=== PATIENT | female | born 1985 | race Caucasian/White ===

== ENCOUNTER 2020-12-28 23:50 | Emergency (ER) | payer MEDICAID ==
[~2020-12-28] VITALS: Ht 167.6 cm; Wt 59.0 kg
[~2020-12-28 23:50] MED LIST: xanax PO
[2020-12-29] MEDS ORDERED: ALPRAZOLAM 0.25 MG TABLET PO ONE (00:30)
[2020-12-29] MEDS ORDERED: ALPR2TAB7 PO (00:32)
[2020-12-29] MEDS ORDERED: DIAZ10TA4 PO (00:32)
[2020-12-29] MEDS ORDERED: ALPRAZOLAM 0.5 MG TABLET ONE (00:42)
[2020-12-29 01:20] VITALS: BP 127/79
--- NOTE | 2020-12-29 01:20 | NUR ---
Patient discharged to home in stable condition. Written and verbal after care instructions given. Patient verbalizes understanding of instructions. Stressed follow up or return to ER for worsening s/s.
== END 2020-12-29 01:20 | disposition home or self-care (01) ==
LOC: ER 23:52
DX: F13.139 Sedative, hypnotic or anxiolytic abuse with withdrawal, unspecified (principal); R21 Rash and other nonspecific skin eruption; F15.10 Other stimulant abuse, uncomplicated; F17.210 Nicotine dependence, cigarettes, uncomplicated; R03.0 Elevated blood-pressure reading, without diagnosis of hypertension
CPT/HCPCS: A4663